=== PATIENT | male | born 1950 | race Caucasian/White ===

== ENCOUNTER → 2018-05-27 | Outpatient (CLI) | payer OTHER | LOC: FIMAGING 09:31 | PROVIDERS: ATTEND Orthopaedic Surgery | DX: Z01.818 Encounter for other preprocedural examination (principal); M17.11 Unilateral primary osteoarthritis, right knee; M25.461 Effusion, right knee; M71.21 Synovial cyst of popliteal space [Baker], right knee ==

== ENCOUNTER 2018-07-12 06:05 | Inpatient (IN) | payer OTHER ==
[~2018-07-12 06:05] MED LIST: ROPIVACAINE 0.2% 80 MG, EPINEPHrine 0.2 MG, KETOROLAC TROMETHAMINE 30 MG, morphINE 10 M... IU ONE; TRANEXAMIC ACID 1,000 MG in NS 100 ML IV ONE
[2018-07-12] MEDS ORDERED: ACETAMINOPHEN 325 MG TAB PO ONE (06:21)
[2018-07-12] MEDS ORDERED: FAMOTIDINE 20 MG TAB PO ONE (06:21)
[2018-07-12] MEDS ORDERED: ceFAZolin 2 GM/DEXTROSE 100 ML IV ONE (06:21)
[2018-07-12] MEDS ORDERED: LR 1,000 ML IV ONE (06:22)
--- NOTE | 2018-07-12 06:31 | PDIAF ---
- Diagnosis Diagnosis: right knee djd Code Status: Full Code - Medication Management Discharge Medications: electronically signed and located in the Home Medication List. - Orders Services needed: Home Care, Physical Therapy Home Care Face to Face: I certify that this patient was under my care and that I had the required [id number] encounter meeting the encounter requirements on the discharge day. My findings support the fact that the patient is homebound as defined in Home Care Face to Face Continued: CMS Chapter 7 Medicare Benefits Manual 30.1.1 , The condition of the patient is such that there exists a normal inability to leave home and consequently, leaving home would require a considerable and taxing effort. Diet Recommendation: no restrictions on diet Diet Texture: Regular Texture Diet Additional Instructions: TOTAL JOINT ARTHROPLASTY DISCHARGE INSTRUCTIONS 1. Your surgeon follows the [facility] protocol for reducing your risk of DVT (blood clots) following surgery. Medication will be ordered to prevent blood clots. A sudden increase in calf pain and/or swelling could indicate a blood clot in your leg. If this occurs, please call your surgeon or his/her mobile sales assistant. An ultrasound of the leg may be necessary to diagnose a blood clot. If you have conditions that make you a higher risk for blood clots, your surgeon may use more aggressive ways to prevent them. Notify your surgeon if you think you are a high risk for blood clots. 2. Wear your white surgical stockings (KELLIE hose) for 2 weeks. This decreases your swelling and may help prevent blood clots. It is ok to remove KELLIE hose at night time to give your legs a break. 3. Swelling and bruising in the surgical leg is common. If you feel that it is excessive, please notify your surgeon. 4. Elevate your surgical leg with the ankle above the hip several times every day. Please keep the leg straight when you elevate by putting pillows under your foot. Do not put pillows under your knee. This will make being able to fully straighten more difficult. This is uncomfortable, but try to do it as much as possible. 5. For total knee replacements use compressive wrap on your knee for 3-5 days after surgery, then you can discontinue it. 6. Use a walker or crutches for 1-2 weeks. Progress your weight-bearing as tolerated. You may start to use a cane when you feel stable and safe. 7. You will receive physical therapy instructions in the hospital. Continue those exercises at home. There are additional exercises in the total joint booklet you were given before surgery. Outpatient physical therapy will begin 7- 10 days after surgery. Please schedule this in advance. 8. Use ice on your knee at least 3-5 times every day for 30 minutes. This helps reduce pain and swelling. Also use it at night before falling asleep. 9. Leave your surgical dressing in place for 2 weeks. Your dressing is water resistant, but not waterproof. Cover it with Saran Wrap or Auydl-z-Whlm before showering. You may shower as soon as you feel safe entering a shower. If you notice bleeding from your incision 2 or 3 days after surgery, please notify your surgeon. 10. Due to narcotics, decreased activity and altered diet, most patients experience constipation after surgery. Use lrvx-irb-fgaauil stool softeners while you are on narcotics. 11. You may drive a car when you are comfortable bearing weight, have good muscular control of your leg and are off narcotics. This usually occurs 2-4 weeks after surgery, depending on which leg was operated on. 12. If there are questions not addressed here, please refer the [facility] book given for more information. If you still have questions, please contact your surgeon s office. 13. If you have a life-threatening emergency, please call 911 and go to the emergency room immediately. For non-life threatening emergencies, please call your physicians office for advice before going to the emergency room. - Follow Up Care Current Providers and Referrals: Keri Jimenez MD [Primary Care Provider] - Yan Rock MD [Medical Doctor] -
--- NOTE | 2018-07-12 06:31 | PDHPUP ---
History & Physical Update H&P update statement: This history and physical update is based on an assessment of the patient which was completed after admission or registration (within 24 hours), but prior to the surgery/procedure. H&P update: no change in patient's condition since H&P completed
[2018-07-12] MEDS ORDERED: CALCIUM CHLORIDE 1 GM/10 ML INJ ONE (06:44)
[2018-07-12] MEDS ORDERED: ceFAZolin 1 GM/5 ML SYR ONE (06:44)
[2018-07-12] MEDS ORDERED: THROMBIN (BOVINE) 5,000 UNIT VIAL TP ONE (06:44)
--- NOTE | 2018-07-12 06:49 | PDANEPAE ---
ANE History of Present Illness Knee OA ANE Past Medical History - Cardiovascular History Hx Hypertension: Yes Hx Arrhythmias: No Hx Chest Pain: No Hx Coronary Artery / Peripheral Vascular Disease: No Hx CHF / Valvular Disease: Yes Hx Palpitations: No Cardiovascular History Comment: hypertrophic cardiomyopathy. valvular disease - Pulmonary History Hx COPD: No Hx Asthma/Reactive Airway Disease: No Hx Recent Upper Respiratory Infection: No Hx Oxygen in Use at Home: No Hx Sleep Apnea: No Sleep Apnea Screening Result - Last Documented: Positive - Neurologic History Hx Cerebrovascular Accident: No Hx Seizures: No Hx Dementia: No - Endocrine History Hx Diabetes: No - Renal History Hx Renal Disorders: No - Liver History Hx Hepatic Disorders: No - Neurological & Psychiatric Hx Hx Neurological and Psychiatric Disorders: No Neurological / Psychiatric History Comment: hx chi - Cancer History Hx Cancer: Yes Cancer History Comment: basal cell omer's surgery - Congenital Disorder History Hx Congenital Disorders: No - GI History Hx Gastrointestinal Disorders: No - Other Health History Other Health History: none - Chronic Pain History Chronic Pain: No - Surgical History Prior Surgeries: knee scope within last 10yrs ANE Review of Systems Review of Systems: - Exercise capacity METS (RN): 5 METS ANE Patient History - Allergies Allergies/Adverse Reactions: latex Allergy (Verified 06/14/18 15:12) Rash - Home Medications Home medications: home medication list seen and reviewed Home Medications: Acetaminophen [Tylenol 325mg (*)] 650 mg PO Q6 PRN 06/07/18 [Last Taken Unknown] Herbals/Supplements -Info Only 1 ea PO DAILY 06/07/18 [Last Taken 1 Week Ago ~] Ibuprofen [Motrin (*)] 800 mg PO HS PRN 06/07/18 [Last Taken 1 Week Ago ~] Losartan Potassium [Cozaar 50 mg (*)] 50 mg PO DAILY 06/07/18 [Last Taken ] Metoprolol Succinate Xr [Toprol Xl 50 mg (*)] 50 mg PO DAILY 06/07/18 [Last Taken 07/11/18] Sertraline HCl [Zoloft 100mg (*)] 200 mg PO DAILY 06/07/18 [Last Taken 07/11/18] - NPO status NPO Status: no food or drink >8 hours NPO Since - Liquids (Date): 07/11/18 NPO Since - Liquids (Time): 22:00 NPO Since - Solids (Date): 07/11/18 NPO Since - Solids (Time): 22:00 - Anes Hx Anes Hx: no prior problems - Smoking Hx Smoking Status: Never smoked - Family Anes Hx Family Hx Anesthesia Complications: none ANE Labs/Vital Signs - Vital Signs Blood Pressure: 153/87 Heart Rate: 59 Respiratory Rate: 16 O2 Sat (%): 95 Height: 182.88 cm Weight: 90.718 kg ANE Physical Exam - Airway Neck exam: FROM Mallampati Score: Class 2 Mouth exam: normal dental/mouth exam - Pulmonary Pulmonary: no respiratory distress - Cardiovascular Cardiovascular: regular rate and rhythym - ASA Status ASA Status: II ANE Anesthesia Plan Anesthesia Plan: spinal Regional Anesthesia: adductor canal FNB (AC block in PACU for POPM PSR)
[2018-07-12] MEDS ORDERED: MIDAZOLAM 2 MG/2 ML VIAL ONE (06:57)
[2018-07-12] MEDS ORDERED: MIDAZOLAM 2 MG/2 ML VIAL IVP ONE (06:57)
[2018-07-12] MEDS ORDERED: BUPIVACAINE/DEXTROSE 7.5MG/ML 2 ML SPINAL AMP SP ONE (07:00)
[2018-07-12] MEDS ORDERED: PROPOFOL/EMULSION 500 MG/50 ML BOTTLE IV ONE ×2 (07:01→07:35)
[2018-07-12] MEDS ORDERED: LIDOCAINE 2% 5 ML SDV ONE (07:02)
[2018-07-12] MEDS ORDERED: NALOXONE HCL 0.4 MG/ML INJ IVP PRN (08:02)
[2018-07-12] MEDS ORDERED: ONDANSETRON 4 MG/2 ML VIAL IVP PRN ×2 (08:02→08:39)
[2018-07-12] MEDS ORDERED: fentaNYL 100 MCG/2 ML INJ IVP PRN (08:02)
[2018-07-12] MEDS ORDERED: HYDROmorphONE/DILAUDID 1 MG/ML INJ IVP PRN (08:02)
[2018-07-12] MEDS ORDERED: ROPIVACAINE HCL 150 MG/30 ML INJ ONE (08:14)
[2018-07-12] MEDS ORDERED: PROMETHAZINE HCL 25 MG SUPPR PR PRN (08:39)
[2018-07-12] MEDS ORDERED: MAGNESIUM HYDROXIDE 30 ML UDCUP PO PRN (08:39)
[2018-07-12] MEDS ORDERED: POLYETHYLENE GLYCOL 3350 17 GM PKT PO PRN (08:39)
[2018-07-12] MEDS ORDERED: DIPHENOXYLATE/ATROPINE LOMOTIL 1 TAB PO PRN (08:39)
[2018-07-12] MEDS ORDERED: TEMAZEPAM 15 MG CAP PO PRN (08:39)
[2018-07-12] MEDS ORDERED: diphenhydrAMINE 25 MG CAP PO PRN (08:39)
[2018-07-12] MEDS ORDERED: ONDANSETRON DISINTEGRATING 4 MG TAB PO PRN (08:39)
[2018-07-12] MEDS ORDERED: LACTULOSE 20 GM/30 ML UDCUP PO PRN (08:39)
[2018-07-12] MEDS ORDERED: PROMETHAZINE HCL 25 MG/ML INJ IVP PRN (08:39)
[2018-07-12] MEDS ORDERED: BISACODYL 10 MG SUPP PR PRN (08:39)
[2018-07-12] MEDS ORDERED: METOCLOPRAMIDE 10 MG/2 ML VIAL IVP PRN (08:39)
--- NOTE | 2018-07-12 08:42 | POSTOPPROG ---
Post Op Note Date of Operation: 07/12/18 Surgeon: Yan Rock Technical Report Writer: kelly Anesthesiologist: sherwin Anesthesia: Spinal Pre-op Diagnosis: right knee djd Post-op Diagnosis: same Indication: same Procedure: right tka Inf/Abcess present in the surg proc area at time of surgery?: No Depth: Deep Incisional (Fascial) EBL: 100-500
[2018-07-12] MEDS ORDERED: METOPROLOL SUCCINATE XR 50 MG TAB PO SCH ×2 (09:00→21:00)
[2018-07-12] MEDS ORDERED: LR 1,000 ML IV SCH (09:00)
[2018-07-12] MEDS ORDERED: LOSARTAN POTASSIUM 50 MG TAB PO SCH ×2 (09:00→21:00)
--- NOTE | 2018-07-12 09:03 | POSTANESTH ---
Post Anesthetic Evaluation Cardiovascular Status: Similar to Pre-Op Cond Respiratory Status: Similar to Pre-op Cond. Level of Consciousness/Mental Status: Alert and Oriented Pain Control: Adequate, Prn Tx Ordered Nausea/Vomiting Control: Adequate, Prn Tx Ordered Complications Possibly Related to Anesthesia: None Noted (AC block done in PACU without diff, no complications.)
[2018-07-12] MEDS ORDERED: fentaNYL 100 MCG/2 ML INJ ONE (09:18)
[2018-07-12] MEDS ORDERED: ONDANSETRON 4 MG/2 ML VIAL ONE (09:32)
[2018-07-12] MEDS: SERTRALINE HCL 100 MG TAB PO SCH (11:30)
[2018-07-12] MEDS: SENNOSIDES/DOCUSATE SODIUM TAB PO SCH ×2 (11:36→21:32)
--- NOTE | 2018-07-12 12:10 | PDMN ---
Medical Necessity Medical necessity: Pt meets inpt criteria per MD order and [facility] S-700, Knee Arthroplasty, Total. 68 y/o w/R knee DJD admitted for R TKA and post-op care. PMHx includes cardiac valvular disease, hypertrophic cardiomyopathy, and HTN.
[2018-07-12] MEDS: oxyCODONE IR 5 MG TAB PO PRN ×4 (12:55→23:52)
[2018-07-12] MEDS: ACETAMINOPHEN 325 MG TAB PO SCH ×2 (14:23→21:33)
[2018-07-12] MEDS: TRANEXAMIC ACID 650 MG TAB PO SCH ×2 (14:23→21:32)
--- NOTE | 2018-07-12 15:32 | SOAPPROG ---
SOAP Progress Note Assessment/Plan: Assessment/Plan: Patient had right TKA robotic assist this morning. Continue discharge planning, likely tomorrow. Home health. Continue pain medication, currently well controlled. Continue VTE ppx: ASA 325 mg PO daily x 6 weeks post-op Continue PT efforts. Plan: 07/12/18 15:30 07/12/18 15:35 Subjective: Patient is s/p right TKA with robotic assist this morning. States he is doing well, pain is being well controlled with oxycodone. He is hoping to go home tomorrow and is anticipating getting home health until he starts outpatient PT on 07-19-18. He denies SOB, CP, fever, chills, nausea, vomiting. Objective: Vital Signs Temp Pulse Resp BP Pulse Ox 36.1 C 47 L 14 137/79 H 97 07/12/18 13:00 07/12/18 13:00 07/12/18 13:00 07/12/18 13:00 07/12/18 13:00 07/11/18 07/12/18 07/13/18 05:59 05:59 05:59 Intake Total 620 Output Total 50 Balance 570 Patient resting comfortably in bed, no acute distress. RLE: surgical wound dressings are intact, mild blood noticed on dressings. Calf is soft and nontender. He can actively dorsiflex and plantar flex foot and great toe. Grossly NVI distally. ICD10 Worksheet Patient Problems: Problems Problem Status Onset Unilateral primary osteoarthritis, right knee Acute
[2018-07-12] MEDS: ceFAZolin 2 GM/DEXTROSE 100 ML IV SCH ×2 (15:37→23:51)
[2018-07-12] MEDS: CYCLOBENZAPRINE 10 MG TAB PO PRN ×2 (15:48→23:51)
[2018-07-12] MEDS: FAMOTIDINE 20 MG TAB PO SCH (21:33)
[2018-07-12] MEDS: ASPIRIN 325 MG TAB PO SCH (21:39)
[2018-07-13] MEDS: ACETAMINOPHEN 325 MG TAB PO SCH ×2 (02:09→09:22)
[2018-07-13] MEDS: TRANEXAMIC ACID 650 MG TAB PO SCH (05:55)
--- NOTE | 2018-07-13 07:28 | PDIAF ---
- Diagnosis Diagnosis: right knee djd Code Status: Full Code - Medication Management Discharge Medications: electronically signed and located in the Home Medication List. - Orders Services needed: Home Care, Physical Therapy Home Care Face to Face: I certify that this patient was under my care and that I had the required [id number] encounter meeting the encounter requirements on the discharge day. My findings support the fact that the patient is homebound as defined in Home Care Face to Face Continued: CMS Chapter 7 Medicare Benefits Manual 30.1.1 , The condition of the patient is such that there exists a normal inability to leave home and consequently, leaving home would require a considerable and taxing effort. Diet Recommendation: no restrictions on diet Diet Texture: Regular Texture Diet Additional Instructions: TOTAL JOINT ARTHROPLASTY DISCHARGE INSTRUCTIONS 1. Your surgeon follows the [facility] protocol for reducing your risk of DVT (blood clots) following surgery. Medication will be ordered to prevent blood clots. A sudden increase in calf pain and/or swelling could indicate a blood clot in your leg. If this occurs, please call your surgeon or his/her data control assistant. An ultrasound of the leg may be necessary to diagnose a blood clot. If you have conditions that make you a higher risk for blood clots, your surgeon may use more aggressive ways to prevent them. Notify your surgeon if you think you are a high risk for blood clots. 2. Wear your white surgical stockings (KELLIE hose) for 2 weeks. This decreases your swelling and may help prevent blood clots. It is ok to remove KELLIE hose at night time to give your legs a break. 3. Swelling and bruising in the surgical leg is common. If you feel that it is excessive, please notify your surgeon. 4. Elevate your surgical leg with the ankle above the hip several times every day. Please keep the leg straight when you elevate by putting pillows under your foot. Do not put pillows under your knee. This will make being able to fully straighten more difficult. This is uncomfortable, but try to do it as much as possible. 5. For total knee replacements use compressive wrap on your knee for 3-5 days after surgery, then you can discontinue it. 6. Use a walker or crutches for 1-2 weeks. Progress your weight-bearing as tolerated. You may start to use a cane when you feel stable and safe. 7. You will receive physical therapy instructions in the hospital. Continue those exercises at home. There are additional exercises in the total joint booklet you were given before surgery. Outpatient physical therapy will begin 7- 10 days after surgery. Please schedule this in advance. 8. Use ice on your knee at least 3-5 times every day for 30 minutes. This helps reduce pain and swelling. Also use it at night before falling asleep. 9. Leave your surgical dressing in place for 2 weeks. Your dressing is water resistant, but not waterproof. Cover it with Saran Wrap or Jqhba-r-Xziw before showering. You may shower as soon as you feel safe entering a shower. If you notice bleeding from your incision 2 or 3 days after surgery, please notify your surgeon. 10. Due to narcotics, decreased activity and altered diet, most patients experience constipation after surgery. Use lsch-vav-wzsqtmy stool softeners while you are on narcotics. 11. You may drive a car when you are comfortable bearing weight, have good muscular control of your leg and are off narcotics. This usually occurs 2-4 weeks after surgery, depending on which leg was operated on. 12. If there are questions not addressed here, please refer the [facility] book given for more information. If you still have questions, please contact your surgeon s office. 13. If you have a life-threatening emergency, please call 911 and go to the emergency room immediately. For non-life threatening emergencies, please call your physicians office for advice before going to the emergency room. - Follow Up Care Current Providers and Referrals: Keri Jimenez MD [Primary Care Provider] - Yan Rock MD [Medical Doctor] -
[2018-07-13] MEDS: SENNOSIDES/DOCUSATE SODIUM TAB PO SCH (09:21)
[2018-07-13] MEDS: ASPIRIN 325 MG TAB PO SCH (09:21)
[2018-07-13] MEDS: SERTRALINE HCL 100 MG TAB PO SCH (09:22)
[2018-07-13] MEDS: FAMOTIDINE 20 MG TAB PO SCH (09:22)
[2018-07-13] MEDS: oxyCODONE IR 5 MG TAB PO PRN (11:34)
[2018-07-13 11:41] VITALS: BP 136/61
--- NOTE | 2018-07-13 14:24 | ASMTLACE ---
LACE Length of stay for Answers: 2 days current admission Acuity / Level of Answers: Yes Care: Did the patient have an inpatient admission? Comorbidities - select Answers: Congestive heart failure all that apply Other Notes: HTN # of Emergency department Answers: 0 visits in the last 6 months Score: 8 Date Signed: 07/13/2018 02:23 PM Electronically Signed By:GERHARD Rodriguez
--- NOTE | 2018-07-13 14:26 | ASMTCMCOM ---
CM Note CM Note Notes: Pt had planned TKA, resides with spouse. Pt medically stable for d/c with [facility] which was pre-arranged by MD office. Orders sent in [employer]. Collette Elizalde met w pt prior to d/c. Date Signed: 07/13/2018 02:24 PM Electronically Signed By:GERHARD Rodriguez
--- NOTE | 2018-07-13 14:27 | ASDISCHSUM ---
Discharge Information Plan Status:Home with Home Health Medically Cleared to Leave: Discharge Date:07/13/2018 12:52 PM CM D/C Disposition: ADT D/C Disposition:Home Health Service Projected Discharge Date:07/13/2018 11:00 AM Transportation at D/C: Discharge Delay Reason: Follow-Up Date:07/13/2018 11:00 AM Discharge Slot: Final Diagnosis: Placement Information Referral Type:*Home Health Care Services Referral ID:[id number] Provider Name:[facility] Address 1:[address] [address] Address 2: City:[place] Selection Factors: State:[place] Patient Contact Information Contact Name:DRE Relationship: Address:[address] City:[place] Alternate Phone: State/Zip Code:[place] [address] Email: Financial Information Financial Class:Medicare Advantage Plans Primary Plan Desc:[facility] [employer] Primary Plan Number:[id number] Secondary Plan Desc: Secondary Plan Number: Assessment Information LACE LACE Length of stay for Answers: 2 days current admission Acuity / Level of Answers: Yes Care: Did the patient have an inpatient admission? Comorbidities - select Answers: Congestive heart failure all that apply Other Notes: HTN # of Emergency department Answers: 0 visits in the last 6 months Score: 8 Date Signed: 07/13/2018 02:23 PM Electronically Signed By:GERHARD Rodriguez SHALOM MINAYA Progress Note CM Note CM Note Notes: Pt had planned TKA, resides with spouse. Pt medically stable for d/c with [facility] which was pre-arranged by MD office. Orders sent in [email or web address]. Collette with [facility] met w pt prior to d/c. Date Signed: 07/13/2018 02:24 PM Electronically Signed By:GERHARD Rodriguez Intervention Information
--- NOTE | 2018-07-13 15:19 | SOAPPROG ---
SOAP Progress Note Assessment/Plan: Assessment: s/p right TKA POD 1 Plan: Discharge home WBAT ROM as tolerated Home PT with supply planner DVT precautions reviewed F/U at two weeks Seek attention for increasing pain, swelling or other focal complaint 07/13/18 15:18 Subjective: Patient complains of mild pain. States there is no chest pain or shortness of breath. Patient tolerating oral pain medication and oral diet. Objective: Vital Signs Temp Pulse Resp BP Pulse Ox 36.4 C 74 18 136/61 H 94 07/13/18 11:40 07/13/18 11:40 07/13/18 11:40 07/13/18 11:40 07/13/18 11:40 Laboratory Results 07/13/18 05:05 07/12/18 07/13/18 07/14/18 05:59 05:59 05:59 Intake Total 1620 Output Total 500 Balance 1120 RLE: Dressing is clean, dry, intact. Intact PF, DF, EHL. Toes are warm and pink. Negative Homans bilaterally. X-rays reveal stable anatomic alignment, no fracture or lucency. ICD10 Worksheet Patient Problems: Problems Problem Status Onset Unilateral primary osteoarthritis, right knee Acute
--- NOTE | 2018-07-13 15:24 | PDDCSUM ---
Discharge Summary Discharge Summary: ADMIT DIAGNOSIS: Right knee degenerative joint disease DISCHARGE DIAGNOSIS: Right knee degenerative joint disease NAME OF PROCEDURE: Right total knee arthroplasty HPI: The patient is a 68 year old male who has end-stage arthritis of his right knee. Clinical and radiographic features are consistent with this. Patient has failed attempts at conservative management, therefore, recommended operative right total knee replacement. HOSPITAL COURSE: Patient was admitted to the hospital floor after uncomplicated right knee arthroplasty. Patient tolerated the procedure well and had no additional complications. At the time of discharge, patient is tolerating an oral diet, pain is well controlled on oral medications, and is voiding without difficulty. Dressing is clean, dry and intact. There is no swelling or calf tenderness. Patient has intact plantarflexion, dorsiflexion, EHL function. X- rays demonstrate anatomic positioning with no fracture or lucency. DISCHARGE ACTIVITY: Patient is WBAT and can perform ROM as tolerated. Patient was instructed to keep dressing clean, dry and intact. Patient is to seek attention for increasing redness, swelling, drainage or discharge. DISCHARGE MEDICATIONS: oxycodone 5 mg 1-2 every 3 hours prn pain, cyclobenzaprine 10 mg PO every 8 hours prn spasm, Zofran 4 mg orally disintegrating tablet every 8 hours prn nausea, aspirin 325 mg PO daily. FOLLOW-UP: Follow up in 2 weeks. Again, patient is to seek attention for increasing redness, swelling, drainage or discharge.
== END 2018-07-13 12:52 | disposition home health service (06) | DRG 470 ==
LOC: COP 06:05 → F3E 08:39 → F3N 10:02
PROVIDERS: ADMIT Orthopaedic Surgery; ATTEND Orthopaedic Surgery
PROC: 8E0Y0CZ Robotic Assisted Procedure of Lower Extremity, Open Approach (ICD-10-PCS; principal; 2018-07-12 07:15)
PROC: 0SRC0JA Replacement of Right Knee Joint with Synthetic Substitute, Uncemented, Open Approach (ICD-10-PCS; principal; 2018-07-12 07:15)
DX: M17.11 Unilateral primary osteoarthritis, right knee (principal); I10 Essential (primary) hypertension; G47.30 Sleep apnea, unspecified; Z85.820 Personal history of malignant melanoma of skin
CPT/HCPCS: 97116-GP; 97161-GP; 97165-GO; 97530-GP; J0171; J0690; J1885; J2250; J2270; J2310; J2405; J2704; J2795; J3010

== ENCOUNTER 2018-07-14 08:06 | Inpatient (IN) | payer OTHER ==
[2018-07-14] MEDS ORDERED: NS 1,000 ML IV ONE (08:20)
--- NOTE | 2018-07-14 08:20 | EDPHY ---
H & P Time Seen by Provider: 07/14/18 08:16 HPI/ROS: Chief complaint. Right knee pain and swelling HPI. 68-year-old male presents emergency department with right knee pain and swelling. He had a total right knee arthroplasty 2 days ago on July 12. He was discharged home yesterday. Since then he has had increased pain and increased swelling. He has somewhat painful quadriceps on the anterior thigh. No fever. No chest pain or shortness of breath. Taking oxycodone with inadequate relief. He has also had nausea vomiting today. ROS 10 systems were reviewed and negative with the exception of the elements mentioned in the history of present illness Past Medical/Surgical History: Recent right total knee arthroplasty, hypertension, cardiomyopathy, valvular disease, closed-head injury Social History: , nonsmoker, no alcohol Smoking Status: Never smoked Physical Exam: General Appearance: Alert well-developed male moderate distress vital signs are stable. Afebrile Eyes: Pupils equal and round no pallor or injection. ENT, Mouth: Mucous membranes are moist. Respiratory: There are no retractions, lungs are clear to auscultation. Cardiovascular: Regular rate and rhythm. Gastrointestinal: Abdomen is soft and nontender, no masses, bowel sounds normal. Neurological: Awake and alert, sensory and motor exams grossly normal. Skin: Warm and dry, no rashes. Musculoskeletal: Neck is supple nontender. Extremities right knee is swollen and somewhat ecchymotic. There is warmth and erythema to the area. Staple line is intact. At the top of the staple line slight bloody drainage. There is a no other laceration mid tibia with golden. This appears intact and healing without infection. Psychiatric: Patient is oriented X 3, there is no agitation. Constitutional: Initial Vital Signs Temperature (C) 36.7 C 07/14/18 08:07 Heart Rate 64 07/14/18 08:07 Respiratory Rate 20 07/14/18 08:07 O2 Sat (%) 93 07/14/18 08:07 O2 Delivery Mode Room Air O2 (L/minute) 2 Allergies/Adverse Reactions: latex Allergy (Verified 06/14/18 15:12) Rash Home Medications: Medication Instructions Recorded Herbals/Supplements -Info Only 1 ea PO DAILY 06/07/18 Losartan Potassium [Cozaar 50 mg 50 mg PO HS 06/07/18 (*)] Metoprolol Succinate Xr [Toprol Xl 50 mg PO HS 06/07/18 50 mg (*)] Sertraline HCl [Zoloft 100mg (*)] 200 mg PO DAILY 06/07/18 Aspirin [Aspirin 325 mg (*)] 325 mg PO DAILY tab 07/13/18 Cyclobenzaprine [Flexeril 10 MG 10 mg PO Q8HRS PRN #20 tab 07/13/18 (*)] Ondansetron Odt [Zofran Odt 4 mg 4 mg PO Q4HRS PRN #20 tab 07/13/18 (*)] oxyCODONE IR [Oxycodone Ir (*)] 5 - 10 mg PO Q3HRS PRN #50 tab 07/13/18 Ibuprofen [Motrin (*)] 200 mg PO DAILY PRN 07/14/18 Medical Decision Making - Diagnostics Imaging Results: Imaging Impressions Extremity Venous Study 07/14/18 08:20 Impression: No deep venous thrombosis in the right lower extremity. Findings discussed with Nghia Hyde M.D. at 9:17 hour, 07/14/2018. Knee X-Ray 07/14/18 08:21 Impression: Postoperative soft tissue swelling. Arthroplasty hardware remains stable. X-ray right knee interpreted by me shows stable hardware Ultrasound of the right lower extremity is negative for DVT Procedures: IV normal saline. Blood cultures. Dilaudid for pain. Zofran for nausea IV Ancef after blood cultures ED Course/Re-evaluation: Patient's potassium was low at 124. I consulted discussed the case with Dr. Hussein, hospitalist who agrees to the admission I consulted discussed the case with Dr. Rock who will see the patient in consultation I have discussed this plan with the family. They expressed understanding and agreement Differential Diagnosis: Postoperative pain and swelling 2 days postoperatively. I considered DVT. I considered hardware disruption. I considered cellulitis. I also note that the patient's hematocrit has dropped since his preop labs. His pain swelling warmth and erythema may certainly be from bleeding into his knee. It is possible this represents cellulitis although 2 days post surgery it would be certainly early for developing postoperative wound infection. - Data Points Laboratory Results: Laboratory Results 07/14/18 08:20 07/14/18 08:20 07/14/18 07/14/18 08:20 08:20 WBC 10.47 10^3/uL H 10^3/uL (3.80-9.50) RBC 3.56 10^6/uL L 10^6/uL (4.40-6.38) Hgb 11.3 g/dL L g/dL (13.7-17.5) Hct 32.0 % L % (40.0-51.0) MCV 89.9 fL fL (81.5-99.8) MCH 31.7 pg pg (27.9-34.1) MCHC 35.3 g/dL g/dL (32.4-36.7) RDW 12.3 % % (11.5-15.2) Plt Count 175 10^3/uL 10^3/uL (150-400) MPV 8.8 fL fL (8.7-11.7) Neut % (Auto) 82.2 % H % (39.3-74.2) Lymph % (Auto) 7.9 % L % (15.0-45.0) [place] % (Auto) 8.7 % % (4.5-13.0) Eos % (Auto) 0.8 % % (0.6-7.6) Baso % (Auto) 0.2 % L % (0.3-1.7) Nucleat RBC Rel Count 0.0 % % (0.0-0.2) Absolute Neuts (auto) 8.61 10^3/uL H 10^3/uL (1.70-6.50) Absolute Lymphs (auto) 0.83 10^3/uL L 10^3/uL (1.00-3.00) Absolute Monos (auto) 0.91 10^3/uL H 10^3/uL (0.30-0.80) Absolute Eos (auto) 0.08 10^3/uL 10^3/uL (0.03-0.40) Absolute Basos (auto) 0.02 10^3/uL 10^3/uL (0.02-0.10) Absolute Nucleated RBC 0.00 10^3/uL 10^3/uL (0-0.01) Immature Gran % 0.2 % % (0.0-1.1) Immature Gran # 0.02 10^3/uL 10^3/uL (0.00-0.10) Sodium 124 mEq/L L mEq/L (135-145) Potassium 4.4 mEq/L mEq/L (3.5-5.2) Chloride 89 mEq/L L mEq/L (97-110) Carbon Dioxide 24 mEq/l mEq/l (22-31) Anion Gap 11 mEq/L mEq/L (6-14) BUN 12 mg/dL mg/dL (7-23) Creatinine 0.8 mg/dL mg/dL (0.7-1.3) Estimated GFR > 60 Glucose 108 mg/dL H mg/dL (70-100) Calcium 8.3 mg/dL L mg/dL (8.5-10.4) Medications Given: Discontinued Medications Diazepam (Valium) 2.5 mg IVP EDNOW ONE Stop: 07/14/18 09:13 Last Admin: 07/14/18 09:13 Dose: 2.5 mg Hydromorphone HCl (Dilaudid) 0.5 mg IVP EDNOW ONE Stop: 07/14/18 08:29 Last Admin: 07/14/18 08:29 Dose: 0.5 mg Sodium Chloride (Ns) 1,000 mls @ 0 mls/hr IV EDNOW ONE; Wide Open PRN Reason: Protocol Stop: 07/14/18 08:21 Last Admin: 07/14/18 08:29 Dose: 1,000 mls Cefepime HCl 1 gm/ Sodium (Chloride) 50 mls @ 100 mls/hr IV EDNOW ONE PRN Reason: Protocol Stop: 07/14/18 09:05 Last Admin: 07/14/18 09:43 Dose: 50 mls Ondansetron HCl (Zofran) 4 mg IVP EDNOW ONE Stop: 07/14/18 08:29 Last Admin: 07/14/18 08:29 Dose: 4 mg Departure - Departure Disposition: [facility] Acute Clinical Impression: Hyponatremia, Postoperative pain of knee Condition: Good
[2018-07-14] MEDS ORDERED: HYDROmorphONE/DILAUDID 1 MG/ML INJ ONE (08:23)
[2018-07-14] MEDS ORDERED: ONDANSETRON 4 MG/2 ML VIAL ONE (08:23)
[2018-07-14] MEDS ORDERED: HYDROmorphONE/DILAUDID 1 MG/ML INJ IVP ONE ×2 (08:28→10:11)
[2018-07-14] MEDS ORDERED: ONDANSETRON 4 MG/2 ML VIAL IVP ONE (08:28)
[2018-07-14 08:31] LABS: PLATELET COUNT 175 10^3/uL (150-400)
[2018-07-14] MEDS ORDERED: CEFEPIME HCL 1 GM in NS 50 ML IV ONE (08:36)
[2018-07-14] MEDS ORDERED: DIAZEPAM 5 MG/ML 1 ML SYR ONE (09:09)
[2018-07-14] MEDS ORDERED: DIAZEPAM 5 MG/ML 1 ML SYR IVP ONE (09:12)
[2018-07-14] MEDS ORDERED: HYDROmorphONE/DILAUDID 1 MG/ML INJ IVP PRN (11:15)
[2018-07-14] MEDS: ONDANSETRON DISINTEGRATING 4 MG TAB PO PRN ×2 (11:41→21:13)
[2018-07-14] MEDS: oxyCODONE IR 5 MG TAB PO PRN ×3 (11:58→21:13)
[2018-07-14] MEDS ORDERED: ONDANSETRON 4 MG/2 ML VIAL IVP PRN (12:09)
[2018-07-14] MEDS ORDERED: ZOLPIDEM TARTRATE 5 MG TAB PO PRN (12:09)
[2018-07-14] MEDS ORDERED: POLYETHYLENE GLYCOL 3350 17 GM PKT PO PRN (12:10)
[2018-07-14] MEDS ORDERED: MAGNESIUM HYDROXIDE 30 ML UDCUP PO PRN (12:10)
[2018-07-14] MEDS ORDERED: BISACODYL 10 MG SUPP PR PRN (12:10)
[2018-07-14] MEDS ORDERED: LACTULOSE 20 GM/30 ML UDCUP PO PRN (12:10)
[2018-07-14] MEDS ORDERED: NS 1,000 ML IV SCH (12:15)
[2018-07-14] MEDS ORDERED: VANCOMYCIN 1.5 GM in NS 250 ML IV SCH (12:30)
--- NOTE | 2018-07-14 13:30 | GCON ---
[f rep st] CONSULTATION CHIEF COMPLAINT: Right knee pain and swelling. HISTORY OF PRESENT ILLNESS: The patient is a 68-year-old gentleman who is 2 days status post right t otal knee replacement. He had an uneventful postoperative course. I was contacted this morning at 6 :30 a.m. as patient was having increasing pain and swelling. I instructed him to follow up in the [facility] for evaluation. He presented to the emergency department for evaluation. In the [facility] department he had a red, swollen knee with swelling to his lower leg and dependent ecchymosis. He was screened and evaluated for a blood clot with an ultrasound, which was negative. Blood work revealed his sodium to be 124. He was, therefore, admitted for hyponatremia and pain control. Currently he has pain just across the right knee. PAST MEDICAL HISTORY: See chart. PAST SURGICAL HISTORY: See chart. MEDICATIONS: Oxycodone, Flexeril, and see chart. OBJECTIVE: GENERAL: This is a healthy gentleman. He is somewhat somnolent. EXTREMITIES: Examinat ion of his right knee reveals swelling across the right knee. The surgical incision and site is inta ct. There is old serous drainage evident but no active serous drainage. There is dependent ecchymos is over the posterior aspect. He has a 1+ edema through the upper lower extremity. Intact ankle santos ntar flexion, dorsiflexion without increased discomfort or complaint. Pain with active quadriceps co ntraction and a moderate suprapatellar effusion. IMPRESSIONS: 1. Right knee hematoma. 2. Hyponatremia. TREATMENT PLAN: He will be admitted to the medical service for evaluation and treatment of his hypon atremia. For his right knee. I have recommended aspiration. This was performed under a sterile pre p, superior lateral pouch was accessed; 40 cc of grossly bloody fluid was withdrawn. A sterile compr essive dressing was applied. I would recommend ice, elevation, and we will hold physical therapy tod ay. He may continue with ankle plantar flexion, dorsiflexion. He should hold his aspirin today and then, may resume physical therapy for range of motion and anticoagulation tomorrow. I have discussed with him the potential risks for infection. I will place him back on antibiotics given the drainage and aspiration of his knee today, and he will be followed closely. /[id number]/MODL
--- NOTE | 2018-07-14 17:53 | PDGENHP ---
History and Physical History and Physical: CC: Acute onset of pain in right knee 2 days after TKA HISTORY: This patient comes into the ER today with acute worsening in pain in his right knee after he had a total knee arthroplasty day here 2 days ago. There had been no surgical complications. He denies any symptoms of fever but had pain severe enough that he was vomiting in the car on the way to the hospital today. He denies any injury to the knee since the surgery. He does not notice any other acute symptoms today ROS: A comprehensive 10 system review revealed no other significant findings PAST MEDICAL HISTORY: * Hypertrophic obstructive cardiomyopathy * Chronic hyponatremia * Osteoarthritis * Depression * Denies any known lung or respiratory or renal diseases FAMILY MEDICAL HISTORY: * He is not aware of any concerning or pertinent family history SOCIAL HISTORY: * lives with his * Nonsmoker * Dr. Apple Veras is his primary care physician MEDICATIONS: The patients list has been reconciled by our clinical pharmacist in the EMR. I have reviewed the list and ordered appropriate medicines. PHYSICAL EXAMINATION: Vital Signs: All stable without fever so far Examination: General: alert, mildly disoriented, looks fairly uncomfortable, mildly anxious Skin: warm, dry, good color, no rash, no jaundice (there is erythema and warmth around the right knee see below) HEENT: normal Neck: no mass or jvd Resps: relaxed Lungs: clear breath sounds Heart: regular, no murmur Abdomen: soft, nondistended, nontender, +BS, no mass Upper Extremities: normal Lower Extremities: The right leg is edematous from the knee down to the ankle and onto the dorsum of the foot. The incision anteriorly over the patella is intact with no signs of any dehiscence or other problems. There is some redness and warmth and swelling around the knee but I do not feel a large effusion. (I reviewed with Dr. Rock who saw the patient after my exam and Dr. Rock performed needle aspiration with which he removed some blood but no purulent looking material). The knee itself is quite tender. There is no palpable cord in the calf, and there are no signs of arterial insufficiency No Bleeding or bruising Neurologic: normal speech/language, normal dance professor, no focal weakness IV site: looks normal LABORATORY DATA: Sodium 124 with chloride 89 normal potassium and renal function, normal TSH ( previous sodium available 1 month ago 130) Normal liver enzymes and bilirubin I have checked a repeat sodium several hours later after some normal saline and remains at 124 Urine sodium is 30 [place] [address], hemoglobin 11, normal platelets RADIOLOGY STUDIES: I reviewed x-rays of the right knee which show stability of the hardware some edema but no other acute changes at the knee I have also reviewed Doppler ultrasound of the right leg, there are no compression flow abnormalities to indicate thrombus ASSESSMENT: * Acute hemarthrosis right knee 2 days after an arthroplasty * Hyponatremia moderate severity in a patient with some mild chronic hyponatremia (not on any diuretics) -fractional excretion of sodium 0.4 would suggest likely hemodynamic/volume or perfusion cause and not SIADH at this time though with his chronic hyponatremia wonder if he might actually have some underlying SIADH as well (TSH is normal) * Hypertrophic obstructive cardiomyopathy, clinically stable on beta-tang and losartan I reviewed the patient's case in detail today with Dr. Yan Rock PLANS: * Admission for treatment of his heme arthrosis, pain management, and management of his hyponatremia * Oral fluid restriction * Continue some IV hydration and follow closely for any possible signs of volume overload related to his cardiac issues * Follow sodium closely; other measures to treat if it does not come up adequately * Analgesics ordered for pain * Will avoid medications for DVT prophylaxis at this point, I reviewed this with Dr. Rock * Because of this will use SCDs and will have the patient ambulating as much as possible * Continue his usual cardiac medicines at this time I have reviewed the patient's past medical records as part of this assessment, including previous hospital admission records
[2018-07-14] MEDS: METOPROLOL SUCCINATE XR 50 MG TAB PO SCH (21:12)
[2018-07-14] MEDS: CYCLOBENZAPRINE 10 MG TAB PO PRN (21:12)
[2018-07-14] MEDS: SENNOSIDES/DOCUSATE SODIUM TAB PO SCH (21:12)
[2018-07-14] MEDS: MELATONIN 3 MG TAB PO SCH (21:13)
[2018-07-14] MEDS: LOSARTAN POTASSIUM 50 MG TAB PO SCH (21:13)
[2018-07-15] MEDS: oxyCODONE IR 5 MG TAB PO PRN ×2 (03:17→18:20)
--- NOTE | 2018-07-15 06:31 | SOAPPROG ---
SOAP Progress Note Assessment/Plan: Assessment: readmission for pain control and acute hemarthrosis hyponatremia Plan: resume aspiring tomorrow ice elevate add oxycontin wean iv pain meds resume pt with min rom d/c home tomorrow if stable 07/15/18 06:29 Subjective: decreased pain no cp or sob Objective: Vital Signs Temp Pulse Resp BP Pulse Ox 36.9 C 65 16 118/63 99 07/15/18 03:42 07/15/18 03:42 07/15/18 03:42 07/15/18 04:28 07/15/18 03:42 Laboratory Results 07/15/18 04:50 07/15/18 04:50 07/14/18 07/15/18 07/16/18 05:59 05:59 05:59 Intake Total 2560 Output Total 1600 Balance 960 dressing changed decreased erythema no active drainage decreased swelling dependant ecchymosis no calf ttp neg homans enrique ICD10 Worksheet Patient Problems: Problems Problem Status Onset Hyponatremia Acute Postoperative pain of knee Acute Unilateral primary osteoarthritis, right knee Acute
[2018-07-15] MEDS: ASPIRIN 325 MG TAB PO SCH (08:21)
[2018-07-15] MEDS: SENNOSIDES/DOCUSATE SODIUM TAB PO SCH ×2 (08:21→20:59)
[2018-07-15] MEDS: SERTRALINE HCL 100 MG TAB PO SCH (08:23)
--- NOTE | 2018-07-15 09:50 | HOSPPROG ---
Hospitalist Progress Note Assessment/Plan: DIAGNOSES: * Acute hemarthrosis right knee 2 days after an arthroplasty * Hyponatremia moderate severity in a patient with some mild chronic hyponatremia (not on any diuretics) -fractional excretion of sodium 0.4 would suggest likely hemodynamic/volume or perfusion cause and not SIADH at this time though with his chronic hyponatremia wonder if he might actually have some underlying SIADH as well (TSH is normal) * Hypertrophic obstructive cardiomyopathy, clinically stable on beta-tang and losartan * Post hemorrhagic anemia likely related to his leg PLANS: * Continue Oral fluid restriction * Slow IV saline and continue to follow closely for any possible signs of volume overload related to his cardiac issues * Follow sodium closely; other measures to treat if it does not come up adequately * Analgesics as needed for pain * Will avoid medications for DVT prophylaxis due to bleeding in his knee at this point, I reviewed this with Dr. Rock * Because of this will use SCDs and will have the patient ambulating as much as possible * Continue his usual cardiac medicines at this time SUBJECTIVE: Still with considerable pain in the knee but a bit less than yesterday No longer nauseous, is eating well No other new symptoms OBJECTIVE Vitals reviewed: All stable without fever Exam: alert oriented skin warm dry color ok resps not labored lungs clear BSs heart regular abd soft nondistended nontender, bowel sounds present limbs right knee looks notably better with less redness and is less tender, incision still looks good iv site ok Lab data: Sodium is now up at 127 Hemoglobin decreased at 9.6 from yesterday's 11.3 Objective: Vital Signs Temp Pulse Resp BP Pulse Ox 37.0 C 68 16 120/58 L 98 07/15/18 08:00 07/15/18 08:00 07/15/18 08:00 07/15/18 08:00 07/15/18 08:00 Laboratory Results 07/15/18 04:50 07/15/18 04:50 07/14/18 07/15/18 07/16/18 06:59 06:59 06:59 Intake Total 2895 Output Total 1600 Balance 1295 ICD10 Worksheet Patient Problems: Problems Problem Status Onset Hyponatremia Acute Postoperative pain of knee Acute Unilateral primary osteoarthritis, right knee Acute
[2018-07-15] MEDS: CYCLOBENZAPRINE 10 MG TAB PO PRN (10:51)
--- NOTE | 2018-07-15 10:51 | ASMTCMCOM ---
CM Note CM Note Notes: Pt came to ED for knee pain, he had TKA 07/12/18 and was d/c home with [facility] PT. [facility] notified of pt admission and clinicals sent in [employer]. PT eval ordered. D/c plan of care: Home with resumption of services of [facility] Date Signed: 07/15/2018 10:50 AM Electronically Signed By:GERHARD Rodriguez
[2018-07-15] MEDS: NS 1,000 ML IV SCH ×2 (13:19→21:13)
--- NOTE | 2018-07-15 13:38 | PDMN ---
Medical Necessity Medical necessity: MCG GRG systemic condition hyponatremia; NA < 130 ( 124) in pt with recent TKA, PMHx: hypertropic obstructive cardiomyopathy, chronic hyponatremia, osteoarthritis, depression, 68yoM with recent TKA presents with knee pain, vomiting and hyponatremia, mildly disoriented, looks uncomfortable, mildly anxious, ( knee was aspirated 40cc grossly bloody fluid) anticipate > 2 MN ongoing med nec care- further monitoring, eval and tx of hyponatremia, knee pain.
[2018-07-15] MEDS: LOSARTAN POTASSIUM 50 MG TAB PO SCH (20:57)
[2018-07-15] MEDS: METOPROLOL SUCCINATE XR 50 MG TAB PO SCH (20:58)
[2018-07-15] MEDS: MELATONIN 3 MG TAB PO SCH (20:58)
[2018-07-16] MEDS: CYCLOBENZAPRINE 10 MG TAB PO PRN (01:47)
[2018-07-16] MEDS: oxyCODONE IR 5 MG TAB PO PRN (02:30)
[2018-07-16] MEDS: NS 1,000 ML IV SCH (05:42)
--- NOTE | 2018-07-16 07:28 | SOAPPROG ---
SOAP Progress Note Assessment/Plan: Assessment: readmission for pain control and acute hemarthrosis hyponatremia Plan: resume aspiring tomorrow ice elevate add oxycontin wean iv pain meds resume pt with min rom d/c home tomorrow if stable and cleared medically, ok to d/c home per ortho continue aspirin, oxycontin and oxycodone f/u at one week seek attn for increasing redness, swelling, drainage or discharge 07/15/18 06:29 07/16/18 07:23 Subjective: mild pain no cp or sob stephanie po Objective: Vital Signs Temp Pulse Resp BP Pulse Ox 37.2 C 80 16 115/68 90 L 07/15/18 20:00 07/15/18 20:58 07/16/18 00:00 07/15/18 20:58 07/15/18 20:00 Laboratory Results 07/15/18 04:50 07/15/18 04:50 07/15/18 07/16/18 07/17/18 05:59 05:59 05:59 Intake Total 2560 3428 Output Total 1600 Balance 960 3428 dressing changed intact pfd,ehl toes warm pink mild serosanguinous drainage at distal incision site neg homans enrique ICD10 Worksheet Patient Problems: Problems Problem Status Onset Hyponatremia Acute Postoperative pain of knee Acute Unilateral primary osteoarthritis, right knee Acute
--- NOTE | 2018-07-16 07:29 | PDIAF ---
- Diagnosis Diagnosis: right knee tka Code Status: Full Code - Medication Management Discharge Medications: electronically signed and located in the Home Medication List. - Orders Services needed: Home Care, Physical Therapy Home Care Face to Face: I certify that this patient was under my care and that I had the required [id number] encounter meeting the encounter requirements on the discharge day. My findings support the fact that the patient is homebound as defined in Home Care Face to Face Continued: CMS Chapter 7 Medicare Benefits Manual 30.1.1 , The condition of the patient is such that there exists a normal inability to leave home and consequently, leaving home would require a considerable and taxing effort. Diet Recommendation: no restrictions on diet Diet Texture: Regular Texture Diet Additional Instructions: f/u one week with nickolas at [facility] daily dressing changes with pressure dressing seek attn for increasing swelling, redness, drainage or discharge TOTAL JOINT ARTHROPLASTY DISCHARGE INSTRUCTIONS 1. Your surgeon follows the [facility] protocol for reducing your risk of DVT (blood clots) following surgery. Medication will be ordered to prevent blood clots. A sudden increase in calf pain and/or swelling could indicate a blood clot in your leg. If this occurs, please call your surgeon or his/her sales assistants and salespersons. An ultrasound of the leg may be necessary to diagnose a blood clot. If you have conditions that make you a higher risk for blood clots, your surgeon may use more aggressive ways to prevent them. Notify your surgeon if you think you are a high risk for blood clots. 2. Wear your white surgical stockings (KELLIE hose) for 2 weeks. This decreases your swelling and may help prevent blood clots. It is ok to remove KELLIE hose at night time to give your legs a break. 3. Swelling and bruising in the surgical leg is common. If you feel that it is excessive, please notify your surgeon. 4. Elevate your surgical leg with the ankle above the hip several times every day. Please keep the leg straight when you elevate by putting pillows under your foot. Do not put pillows under your knee. This will make being able to fully straighten more difficult. This is uncomfortable, but try to do it as much as possible. 5. For total knee replacements use compressive wrap on your knee for 3-5 days after surgery, then you can discontinue it. 6. Use a walker or crutches for 1-2 weeks. Progress your weight-bearing as tolerated. You may start to use a cane when you feel stable and safe. 7. You will receive physical therapy instructions in the hospital. Continue those exercises at home. There are additional exercises in the total joint booklet you were given before surgery. Outpatient physical therapy will begin 7- 10 days after surgery. Please schedule this in advance. 8. Use ice on your knee at least 3-5 times every day for 30 minutes. This helps reduce pain and swelling. Also use it at night before falling asleep. 9. Leave your surgical dressing in place for 2 weeks. Your dressing is water resistant, but not waterproof. Cover it with Saran Wrap or Txynd-x-[id number] before showering. You may shower as soon as you feel safe entering a shower. If you notice bleeding from your incision 2 or 3 days after surgery, please notify your surgeon. 10. Due to narcotics, decreased activity and altered diet, most patients experience constipation after surgery. Use [id number] stool softeners while you are on narcotics. 11. You may drive a car when you are comfortable bearing weight, have good muscular control of your leg and are off narcotics. This usually occurs 2-4 weeks after surgery, depending on which leg was operated on. 12. If there are questions not addressed here, please refer the [facility] book given for more information. If you still have questions, please contact your surgeon s office. 13. If you have a life-threatening emergency, please call 911 and go to the emergency room immediately. For non-life threatening emergencies, please call your physicians office for advice before going to the emergency room. - Follow Up Care Current Providers and Referrals: Keri Jimenez MD [Primary Care Provider] - As per Instructions Yan Rock MD [Medical Doctor] -
[2018-07-16 07:30] VITALS: BP 106/60
--- NOTE | 2018-07-16 09:18 | ASMTLACE ---
LACE Length of stay for Answers: 3 days current admission Acuity / Level of Answers: Yes Care: Did the patient have an inpatient admission? Comorbidities - select Answers: Other Notes: HTN; Valvular disease all that apply # of Emergency department Answers: 1-2 visits in the last 6 months Score: 8 Date Signed: 07/16/2018 09:17 AM Electronically Signed By:GERHARD Rodriguez
[2018-07-16] MEDS: ASPIRIN 325 MG TAB PO SCH (09:29)
[2018-07-16] MEDS: SENNOSIDES/DOCUSATE SODIUM TAB PO SCH (09:29)
[2018-07-16] MEDS: SERTRALINE HCL 100 MG TAB PO SCH (09:29)
--- NOTE | 2018-07-16 11:55 | PDDCSUM ---
Discharge Summary Discharge Summary: DISCHARGE DIAGNOSES: * Acute on chronic hyponatremia, hypovolemia acutely with suspicion for chronic SIADH * Acute hemarthrosis in knee after total knee arthroplasty * (admission diagnosis was for cellulitis at knee surgery site but final diagnosis is that there is no infection in his leg during this hospital admission) CONSULTANTS: Dr. Yan Rock orthopedics PROCEDURES: Arthrocentesis review removal of bloody fluid HOSPITAL COURSE SUMMARY: This patient presented to the hospital complaining of severe pain in his right knee 2 days after a knee arthroplasty done here. There was some erythema around the knee and in the ER diagnosis was made for some cellulitis, however in the end it is felt that there is no evidence of infection. The patient did have some hemarthrosis. There is no fever and fluid removed from the fluid by arthrocentesis was bloody not purulent. The patient was admitted and treated with ice elevation and compression at the knee that his knee has improved significantly here. He is working well with physical therapy and getting about okay on his feet. In addition was noted the patient has a sodium 124 upon arrival. He has chronic hyponatremia and his baseline sodium 1 month ago was 130. At this time a urine sodium and fractional excretion of sodium were tested and there is altered were consistent with a pre renal or hemodynamic low volume situation. He was treated with some IV saline, an oral fluid restriction and a liberal sodium diet and his sodium has improved to 128 which is close to his baseline. It is felt he may likely have chronic SIADH but he has not had formal outpatient evaluation for the low sodium that he is aware of in terms of diagnostic purposes. At this point it is recommended that he continue on a low oral fluid diet, with unrestricted sodium intake although he does have a hypertrophic cardiomyopathy and he will have to follow up closely over time with his citizenship teacher and primary care physician to ensure that he is not developing volume overload if his heart condition progresses. He is aware to watch for swelling of the ankles or dyspnea. At this point he is stable for discharge from the hospital. He will need follow -up with Dr. Yan Rock in the [facility] and an appointment is set for next week PENDING TEST RESULTS: None MEDICATION CHANGES: None FOLLOW-UP PLAN: With Dr. Rock in 1 week With his primary care long-term for management of his hyponatremia Greater than 35 minutes bedside and care coordination time today
[2018-07-16] MEDS ORDERED: CEPHALEXIN 500 MG CAP PO SCH (12:00)
--- NOTE | 2018-07-16 12:32 | ASMTCMCOM ---
CM Note CM Note Notes: Pt medically stable for d/c home with [facility], orders sent in [employer] and Collette in admissions was notified. Date Signed: 07/16/2018 12:31 PM Electronically Signed By:GERHARD Rodriguez
== END 2018-07-16 15:43 | disposition home health service (06) | DRG 920 ==
LOC: F3N 10:26
PROVIDERS: ADMIT Internal Medicine; ATTEND Internal Medicine
PROC: 0S9C3ZZ Drainage of Right Knee Joint, Percutaneous Approach (ICD-10-PCS; principal; 2018-07-14)
DX: M96.830 Postprocedural hemorrhage of a musculoskeletal structure following a musculoskeletal system procedure (principal); M25.062 Hemarthrosis, left knee; G89.18 Other acute postprocedural pain; Z96.651 Presence of right artificial knee joint; E87.1 Hypo-osmolality and hyponatremia; E86.1 Hypovolemia; D50.0 Iron deficiency anemia secondary to blood loss (chronic); I42.1 Obstructive hypertrophic cardiomyopathy; I10 Essential (primary) hypertension; F32.9 Major depressive disorder, single episode, unspecified
CPT/HCPCS: 96374; 97116-GP; 97161-GP; J0692; J1170; J2405; J3360; J3370

== ENCOUNTER → 2018-08-13 | Outpatient (CLI) | payer OTHER | LOC: BMCIMAGING 09:59 | PROVIDERS: ATTEND Internal Medicine Geriatric Medicine | DX: J98.09 Other diseases of bronchus, not elsewhere classified (principal); M79.89 Other specified soft tissue disorders; Z96.651 Presence of right artificial knee joint ==